=== PATIENT | female | born 1980 | race Caucasian/White ===

== ENCOUNTER → 2019-09-01 11:55 | Outpatient (BNVA) | payer MEDICARE, MEDICAID, SELFPAY | PROVIDERS: Family Provider Nurse Practitioner; PCP Nurse Practitioner; Visit Provider Specialist | DX: G40.B09 Juvenile myoclonic epilepsy, not intractable, without status epilepticus (principal); Z96.89 Presence of other specified functional implants | CPT/HCPCS: 99213 ==

== ENCOUNTER → 2020-06-08 11:10 | Outpatient (BNVA) | payer MEDICARE, MEDICAID, SELFPAY | PROVIDERS: Family Provider Nurse Practitioner; PCP Nurse Practitioner; Visit Provider Specialist | DX: G40.B09 Juvenile myoclonic epilepsy, not intractable, without status epilepticus (principal); Z96.82 Presence of neurostimulator | CPT/HCPCS: 95970; 99213 ==

== ENCOUNTER 2020-07-18 05:42 | Day surgery (SDC) | payer MEDICARE, MEDICAID, SELFPAY ==
[2020-07-15 17:42] VITALS: BMI 55.4
[2020-07-18] VITALS (7 sets, daily range): BP systolic 112–170; BP diastolic 77–107; PULSE 90–98; RESP 16–20; TEMP 36.3–36.9; O2SAT 93–97
--- NOTE | 2020-07-18 06:11 | W.PM.OPSUD ---
Surgery/Procedure H&P Update DATE OF PROCEDURE: July 18, 2020 DATE H&P PERFORMED: 06/23/20 H&P UPDATE INFORMATION: I have reviewed H&P completed within last 30 days, I have examined patient prior to procedure and No changes to prior documentation PREOP DIAGNOSIS: Vagal nerve stimulator generator end of service PRIMARY INDICATION FOR PROCEDURE: VNS generator Near end of service PLANNED PROCEDURE: Operation Date: 07/18/20 07:00 Proposed Procedures p VNS Generator Exchange(Not Applicable) - Radhames Stewart MD
[2020-07-18] MEDS: sodium chloride 0.9% 1,000 ML 30 ML IV (06:33)
[2020-07-18 06:37] LABS: Basophils % 0.2 %; Eosinophils # 0.1 10^3/uL (0.0-0.8); Eosinophils % 1.7 %; Hematocrit 41.1 % (37.0-47.0); Hemoglobin 13.2 g/dL (11.5-15.3); Lymphocytes # 1.8 10^3/uL (0.8-4.8); Lymphocytes % 26.5 %; Mean Corpuscular HGB Conc 32.1 g/dL (30.0-36.0); Mean Corpuscular Hemoglobin 30.8 pg (28.0-34.0); Mean Corpuscular Volume 95.8 fL (81-99); Mean Platelet Volume 10.5 fL (7.4-10.4); Monocytes # 0.5 10^3/uL (0.2-0.9); Monocytes % 6.9 %; Neutrophils % 64.5 %; Nucleated Red Blood Cells % 0 %; Platelet Count 221 10^3/cmm (130-400); Red Blood Count 4.29 10^6/uL (4.1-5.3); Red Cell Distribution Width 13.4 % (12.1-15.1); White Blood Count 6.7 10^3/uL (4.0-10.0)
--- NOTE | 2020-07-18 06:37 | P.ANESASSM_ITS ---
Pre-Anesthetic Assessment Pre-Anesthetic Assessment: Height/Weight: Height 1.6 m Weight 141.974 kg Temp Pulse Resp BP Pulse Ox 97.5 F L 93 18 158/91 94 07/18/20 06:23 07/18/20 06:23 07/18/20 06:23 07/18/20 06:23 07/18/20 06:23 Preop Diagnosis: Vagal nerve stimulator generator end of service Proposed Procedure: Operation Date: 07/18/20 07:00 Proposed Procedures p VNS Generator Exchange(Not Applicable) - Radhames Stewart MD Last intake: Intake Last Liquid Date 07/17/20 Last Liquid Time 21:00 Last Solid Date 07/17/20 Last Solid Time 17:00 Exam: Pre-Anes Outpt Exam: alert, oriented x 3, clear to auscultation bilaterally and regular rate & rhythm Pulmonary: Pulmonary: None reported CV/HEM: CV/HEM: None reported Anesthetic Plan: ASA status: 2 Anesthesia: Anesthesia Evaluation and MAC Meds/Allergies Current Medications: Current Medications Generic Name Dose Route Start Last Admin Trade Name Freq PRN Reason Stop Dose Admin Sodium Chloride 1,000 mls @ 30 ml s/hr 07/18/20 06:00 07/18/20 06:33 Sodium Chloride 0.9% IV 07/19/20 05:59 30 mls/hr .Q24H GRAZYNA Administration PFSH Anesthesia PFSH: Surgical History (Updated 07/15/20 @ 17:50 by Missy White) S/P placement of VNS (vagus nerve stimulation) device Family History Other Cancer Diabetes Hypertension Denies family history of CAD (coronary artery disease) Stroke Social History Smoking and tobacco status: never smoked Alcohol intake: current Alcohol intake frequency: holidays/special occasions only History of recent travel: Yes (travels from [place]) Female Reproductive History: Date of last menstrual period: 03/25/16 Data Anesthesia CBC & Chem 7: 07/18/20 06:20 07/18/20 06:20 Other Labs: Laboratory Results - last 48 hr 07/18/20 06:20 WBC 6.7 RBC 4.29 Hgb 13.2 Hct 41.1 MCV 95.8 MCH 30.8 MCHC 32.1 RDW 13.4 Plt Count 221 MPV 10.5 H Neut % (Auto) 64.5 Lymph % (Auto) 26.5 [place] % (Auto) 6.9 Eos % (Auto) 1.7 Baso % (Auto) 0.2 Neut # (Auto) 4.30 Lymph # (Auto) 1.8 [place] # (Auto) 0.5 Eos # (Auto) 0.1 Baso # (Auto) 0.0 Nucleated RBC % (auto) 0 Nucleated RBCs # 0.0 Cardiac Studies: No Data to Display
[2020-07-18 06:47] LABS: Blood Urine Neg (Negative); Glucose Urine UA Norm (Normal); Ketones Urine Negative (Negative); Nitrate Urine Negative (Negative); Protein Urine Neg (Negative); Specific Gravity, Urine 1.025 (1.005-1.030); Urine Appearance Hazy (CLEAR); Urine Color Yellow (Yellow); pH Urine 5 (5-7)
[2020-07-18 06:48] LABS: Add Urine Microscopic? YES; Bacteria Urine 1+ /hpf; Bilirubin Urine 1+ (Negative); Leukocyte Esterase Urine Negative (Negative); RBC Urine RARE /hpf (0-2); Squamous Epithelial Cell Urine 15-25 /hpf (0-5); Urobilinogen Urine 1 mg/dL (Negative); WBC Urine 0-4 /hpf (0-5)
[2020-07-18 06:49] LABS: Add Urine Culture? No; Mucus Urine 1+ /hpf
[2020-07-18 06:52] LABS: Anion Gap 12.8 (5-19); Blood Urea Nitrogen 12 mg/dL (6-20); Calcium 8.5 mg/dL (8.5-10.5); Carbon Dioxide 30 mmol/L (22-29); Chloride 101 mmol/L (98-107); Glomerular Filtration Rate 135.3 mL/min (90-130); Glucose 96 mg/dL (65-115); Osmolality Calculated 290 mOsm/kg (285-295); Potassium 3.8 mmol/L (3.5-5.1); Sodium 140 mmol/L (136-145)
[2020-07-18] MEDS: ceFAZolin 1,000 mg SDV 1000 MG IRRIGATION (07:36)
[2020-07-18] MEDS: lidocaine 1% INJ 20 mL SUBCUT (07:36)
--- NOTE | 2020-07-18 08:08 | PM.OP ---
Operative Report Date of procedure: July 18, 2020 Pre-op Diagnosis: Vagal nerve stimulator generator end of service Post-op diagnosis: same Procedure Done: Vagal nerve stimulator generator exchange Implants: Vagal nerve stimulator generator Specimens removed/disposition: Old vagal nerve stimulator generator Surgeon: Radhames Stewart Anesthesia: MAC and Local Estimated blood loss (mL): 10 Complications: None Findings: On table interrogation reveals appropriate functioning new generator and associated lead Condition: stable Disposition: same day Brief History: Ms. Mejia is a 40-year old female with a long history for seizures. She has had prior vagal nerve stimulator implant and has undergone prior generator replacement on at least 2 previous occasions. Current generator is now at end of service. Generator placement is been recommended and she was referred to our service by Dr. Rankin. Details and risk of the procedure And frankly discussed. Proper consents have been reviewed and signed. Procedure: Ms. Mejia was taken to the operating room theater carefully placed on the OR table and secured. After confirmation of established IV, she underwent IV conscious sedation with anesthesia monitoring. Her entire chest wall was sterilely prepped and draped. 1% lidocaine was infiltrated through the old hypertrophic incisional scar. #15 scalpel blade was utilized to sharply dissected down directly to the pseudocapsule which was opened with Metzenbaum scissors. The old generator was exposed and delivered. It was disconnected from its lead and new generator was subsequently placed. This generator was placed back into the pseudocapsule which time on table interrogation was performed revealing adequate impedance and appropriate function. New generator remains active. We was irrigated with antibiotic solution. She underwent careful closure in 2 layers of 2-0 Vicryl suture. Subtendinous layer was closed with 4-0 Monocryl suture. Dermabond was then carefully applied followed by sterile dressing. She tolerated procedure well was awakened from IV conscious sedation and taken to outpatient surgery department in stable condition. The new generator is [employer]. Serial number: [id number]
== END 2020-07-18 09:09 | disposition home or self-care (01) ==
PROVIDERS: PCP Nurse Practitioner; Visit Provider Thoracic Surgery (Cardiothoracic Vascular Surgery)
PROC: (CPT 61885; principal; 2020-07-18 07:00)
DX: Z45.42 Encounter for adjustment and management of neurostimulator (principal)
CPT/HCPCS: 61885; 36415; 80048; 81001; 85025; C1767; J0690; J2704; J3010; J7030

== ENCOUNTER → 2020-08-01 13:16 | Outpatient (BNVA) | payer MEDICARE, MEDICAID, SELFPAY | PROVIDERS: PCP Nurse Practitioner; Visit Provider Specialist | DX: G40.B09 Juvenile myoclonic epilepsy, not intractable, without status epilepticus (principal); Z96.89 Presence of other specified functional implants | CPT/HCPCS: 95970; 99213 ==

== ENCOUNTER → 2020-12-13 09:53 | Outpatient (BNVA) | payer MEDICARE, MEDICAID, SELFPAY | PROVIDERS: PCP Nurse Practitioner; Visit Provider Specialist | DX: G40.B09 Juvenile myoclonic epilepsy, not intractable, without status epilepticus (principal); Z96.82 Presence of neurostimulator | CPT/HCPCS: 95970; 99213 ==

== ENCOUNTER → 2021-05-23 10:07 | Outpatient (BNVA) | payer MEDICARE, MEDICAID, SELFPAY | PROVIDERS: PCP Nurse Practitioner; Visit Provider Specialist | DX: G40.B19 Juvenile myoclonic epilepsy, intractable, without status epilepticus (principal); Z96.82 Presence of neurostimulator | CPT/HCPCS: 95970; 99213 ==

== ENCOUNTER → 2022-05-23 10:23 | Outpatient (BNVA) | payer MEDICARE, MEDICAID, SELFPAY | PROVIDERS: PCP Nurse Practitioner; Visit Provider Specialist | DX: G40.B09 Juvenile myoclonic epilepsy, not intractable, without status epilepticus (principal); Z96.82 Presence of neurostimulator; Z79.899 Other long term (current) drug therapy | CPT/HCPCS: 99213 ==

== ENCOUNTER → 2023-06-14 15:04 | Outpatient (BNVA) | payer MEDICARE, MEDICAID, SELFPAY | PROVIDERS: PCP Nurse Practitioner; Referring Provider Specialist; Visit Provider Specialist | DX: R29.90 Unspecified symptoms and signs involving the nervous system (principal); G40.B09 Juvenile myoclonic epilepsy, not intractable, without status epilepticus; Z96.89 Presence of other specified functional implants | CPT/HCPCS: 95970; 99213 ==

== ENCOUNTER → 2024-01-08 12:11 | Outpatient (BNVA) | payer MEDICARE, MEDICAID, SELFPAY | PROVIDERS: PCP Nurse Practitioner; Visit Provider Specialist | DX: R29.90 Unspecified symptoms and signs involving the nervous system (principal); G40.B09 Juvenile myoclonic epilepsy, not intractable, without status epilepticus; Z96.89 Presence of other specified functional implants | CPT/HCPCS: 95970; 99213 ==

== ENCOUNTER → 2024-07-21 08:12 | Outpatient (BNVA) | payer MEDICARE, MEDICAID, SELFPAY | PROVIDERS: PCP Nurse Practitioner; Visit Provider Specialist | DX: G40.B09 Juvenile myoclonic epilepsy, not intractable, without status epilepticus (principal); R29.90 Unspecified symptoms and signs involving the nervous system; Z96.89 Presence of other specified functional implants | CPT/HCPCS: 95970; 99213 ==

== ENCOUNTER → 2025-01-19 08:24 | Outpatient (BNVA) | payer MEDICARE, MEDICAID, SELFPAY | PROVIDERS: PCP Nurse Practitioner; Visit Provider Specialist | DX: G40.B09 Juvenile myoclonic epilepsy, not intractable, without status epilepticus (principal); Z96.89 Presence of other specified functional implants | CPT/HCPCS: 95971; 99214 ==